=== PATIENT | female | born 1990 | race Caucasian/White ===

== ENCOUNTER → 2016-05-09 | Outpatient (CLI) | payer BC ==
--- NOTE | 2016-05-09 16:35 | KCIC ---
PROCEDURE Left shoulder soft tissue ultrasound. HISTORY Left shoulder pain. Vaccine 2 weeks ago. TECHNIQUE Real-time ultrasound imaging of the soft tissues of the left shoulder is performed. COMPARISON None. FINDINGS Normal-appearing soft tissues are seen. No disruption of tissue planes. No evidence of mass or fluid collection. IMPRESSION Negative ultrasound of the soft tissues of the left shoulder. Electronically signed by: Bear Ruiz MD (May 09, 2016 16:30:39)
== END | disposition home or self-care (01) ==
LOC: KCIC US 14:34
PROVIDERS: ATTEND Family Medicine
DX: M25.512 Pain in left shoulder (principal)
CPT/HCPCS: 76881

== ENCOUNTER → 2018-04-29 | Outpatient (CLI) | payer BC ==
--- NOTE | 2018-04-29 15:33 | KCIC ---
EXAM: Left hand, 3 views. HISTORY: Pain. COMPARISON: None. FINDINGS: 3 views of the left hand are obtained. There is no fracture, dislocation or subluxation. There is no suspicious finding at the site of palpable concern demarcated by a BB for the exam at the base of the third phalanx. IMPRESSION: No acute osseous finding. Electronically signed by: Tala Ruiz MD (04/29/2018 3:29 PM) [id number]
--- NOTE | 2018-04-29 15:34 | KCIC ---
EXAM: Left knee, 3 views. HISTORY: Pain. COMPARISON: None. FINDINGS: 3 views left knee are obtained. There is no fracture, dislocation or subluxation. There is no joint effusion. IMPRESSION: No acute osseous finding. Electronically signed by: Tala Ruiz MD (04/29/2018 3:30 PM) [facility]
== END | disposition home or self-care (01) ==
LOC: KCIC 14:37
PROVIDERS: ATTEND Family Medicine
DX: R22.32 Localized swelling, mass and lump, left upper limb (principal); M25.562 Pain in left knee; M79.642 Pain in left hand
CPT/HCPCS: 73130; 73562

== ENCOUNTER → 2018-05-26 | Outpatient (CLI) | payer BC ==
--- NOTE | 2018-05-26 11:30 | KCIC ---
AP and Lateral Views of the Chest 05/26/2018 12:00 AM Indication: Shortness of breath Comparison: None Findings: There is no focal consolidation or infiltrate identified. The cardiomediastinal silhouette is within normal limits. There is no evidence of pneumothorax or pleural effusion. No acute osseous abnormalities are identified. Impression: No evidence of acute cardiopulmonary process. Electronically signed by: Kai Klein MD (05/26/2018 11:25 AM) [id number]
== END | disposition home or self-care (01) ==
LOC: KCIC 10:31
PROVIDERS: ATTEND Nurse Practitioner Family
DX: R06.02 Shortness of breath (principal)
CPT/HCPCS: 71046

== ENCOUNTER → 2018-09-07 | Outpatient (CLI) | payer BC ==
--- NOTE | 2018-09-08 09:49 | KCIC ---
CHEST PA LATERAL History: Cough for 2 weeks Comparison: 05/26/2018 Findings: 2 views of the chest are submitted. There is no infiltrate, pneumothorax, or effusion. Pericardial cardiac silhouette is within normal limits in size. Impression: 1. There is no radiographic evidence of acute cardiopulmonary disease. Electronically signed by: Cortez Lubin MD (09/07/2018 4:47 PM) [id number]
== END | disposition home or self-care (01) ==
LOC: KCIC 13:26
PROVIDERS: ATTEND Nurse Practitioner Family
DX: R05 Cough (principal)
CPT/HCPCS: 71046

== ENCOUNTER → 2018-10-29 | Outpatient (CLI) | payer BC ==
--- NOTE | 2018-10-29 17:38 | KCIC ---
FOOT LEFT 3V History: Left foot pain at the forefoot for a few days. Pain across the top of the foot. No known injury.. No evidence of acute fracture. No aggressive bone destruction. Joint spaces and alignment are intact. No significant soft tissue abnormality. IMPRESSION: No acute radiographic findings. Electronically signed by: Krish Davis MD (10/29/2018 5:35 PM) [id number]
== END ==
LOC: KCIC 16:01
PROVIDERS: ATTEND Nurse Practitioner Family
DX: M79.672 Pain in left foot (principal)
CPT/HCPCS: 73630